=== PATIENT | male | born 1945 | race Caucasian/White ===

== ENCOUNTER 2017-08-07 05:55 | Day surgery (SDC) | payer OTHER ==
[2017-08-03 16:17] VITALS: BMI 23.4
--- NOTE | 2017-08-06 10:18 | HP ---
DATE OF ADMISSION: DATE OF SURGERY: 08/07/2017 REASON FOR ADMISSION: Right inguinal hernia. BRIEF HISTORY: This is a 72-year-old gentleman with a longstanding history of having a known right inguinal hernia. He knows when he tore the area. It was him catching a ball, and the patient was off balance and subsequently felt a ripping sensation. In any event, the patient states he has some discomfort with prolonged standing or mild strenuous activity in the right groin region. He notices a progressive bulge in the right groin. Now he has a large mass in the right groin. He has had no bouts of nausea or vomiting. No change in bowel habits. PAST MEDICAL HISTORY: No coronary artery disease, hypertension, or diabetes. PAST SURGICAL HISTORY: The patient has had left inguinal hernia repair approximately 20 years ago. The patient thinks he had mesh. MEDICATIONS: Aspirin. ALLERGIES: None. SOCIAL HISTORY: The patient is in construction. He does not smoke. He drinks socially. PHYSICAL EXAMINATION: Abdomen: Soft, nontender, nondistended. He is placed through a multitude of Valsalva maneuvers. He has a large right inguinal hernia, which is reducible in the supine position. He has a left inguinal scar. The patient had a left inguinal hernia repair 20 years ago. He has no obvious recurrence, but there is some laxity noted in the left groin, and a small, recurrent hernia cannot be entirely ruled out. Genitourinary: Right scrotum and testicle is within normal limits. Left scrotum and testicle is within normal limits, but the testicle is higher riding. IMPRESSION AND PLAN: Right inguinal hernia. This is a 72-year-old gentleman becoming more symptomatic from an enlarging right inguinal hernia. We have discussed the various types of approaches. The patient will be scheduled for a laparoscopic right inguinal herniorrhaphy. At this time, I do not feel an obvious hernia in the left groin, but we will examine the left side, and if a hernia is noted, it will be repaired. If no hernia is noted on the left groin, a piece of mesh will be left in the direct inguinal space for reinforcement given this repair was over 20-25 years ago. The indications, alternatives, and complications of this procedure discussed at length. We specifically talked about the higher chance of a seroma, which may or may not resolve in this gentleman's case given his large right inguinal hernia with encroachment into the proximal scrotum. Maryuri RIVAS [id number]
[2017-08-07] MEDS ORDERED: DEXAMETHASONE SOD PHOSPHATE/PF 10 MG/ML SDV ONE (07:13)
[2017-08-07] MEDS ORDERED: MIDAZOLAM HCL 2 MG/2 ML SINGLE DOSE VIAL ONE (07:13)
[2017-08-07] MEDS ORDERED: BUPIVACAINE HCL/PF (5 MG/ML) 30 ML VIAL IJ ONE (07:13)
[2017-08-07] MEDS ORDERED: SUCCINYLCHOLINE CHLORIDE 200 MG/10 ML VIAL ONE (07:38)
[2017-08-07] MEDS ORDERED: ROCURONIUM BROMIDE 50 MG/5 ML VIAL ONE ×2 (07:38→08:01)
[2017-08-07] MEDS ORDERED: PROPOFOL 20 ML ONE ×2 (07:38)
[2017-08-07] MEDS ORDERED: ceFAZolin SODIUM 1 GM VIAL ONE (07:54)
[2017-08-07] MEDS ORDERED: DEXAMETHASONE SOD PHOSPHATE 4 MG/1 ML VIAL ONE (07:57)
[2017-08-07] MEDS ORDERED: ONDANSETRON 4 MG/2 ML VIAL ONE (07:57)
[2017-08-07] MEDS ORDERED: NEOSTIGMINE METHYLSULFATE 0.5 MG/ML - 10 ML MDV ONE (08:17)
[2017-08-07] MEDS ORDERED: GLYCOPYRROLATE 0.2 MG/1 ML VIAL ONE (08:18)
--- NOTE | 2017-08-07 09:26 | OP ---
DATE OF OPERATION: 08/07/2017 PREOPERATIVE DIAGNOSIS: Right inguinal hernia. POSTOPERATIVE DIAGNOSIS: Right pantaloon inguinal hernia (incarcerated direct component), recurrent left inguinal hernia. PROCEDURES: Laparoscopic repair of incarcerated right inguinal hernia with mesh, laparoscopic repair of recurrent left inguinal hernia with mesh. SURGEON: Rishabh Stewart MD WATERSHED COORDINATOR: Jamison He MD ANESTHESIA: Oxana Olivares MD (general). ESTIMATED BLOOD LOSS: Minimal. SPECIMEN: None. INDICATIONS/PROCEDURE: This is a 72-year-old gentleman with a longstanding history of having a known right inguinal hernia. The hernia has gotten very large now, and he has discomfort in the area. He also complains of having a mass in his right groin, which is the hernia. He is here for operative repair. Patient was identified and appropriately positioned on the operating room table. After placement of general anesthesia, the abdomen was prepped and draped in the usual sterile fashion with ChloraPrep. An infraumbilical incision was made deep into the subcutaneous tissues. The fascia of the rectus muscle on the right identified, divided sharply, and the muscles split. Under direct vision, a dissector balloon followed by structural balloon placed. Also, under direct vision, a suprapubic 11-mm port placed. The following structures on the right side identified, pubic tubercle, Coopers ligament, and inferior epigastric vessels, spermatic cord, and lateral abdominal wall. During this dissection, the patient has an incarcerated direct inguinal hernia containing fat and a little bit of bladder. This reduced back in the preperitoneal space with blunt dissection. He had a small indirect inguinal hernia sac and a small cord lipoma, but the internal ring was markedly attenuated. Both reduced back in the preperitoneal space. A 4.5 x 6 piece of Versatex mesh was keyhole placed through the suprapubic port site. The mesh was wrapped around the cord structures laterally to reconstruct the internal ring. Laterally, the mesh was anchored to the anterior abdominal wall and lateral abdominal wall. Medially, the mesh anchored to the anterior abdominal wall, pubic tubercle, and Coopers ligament. Upon completion of the right side, similar structures on the left side identified. The left direct space was intact. He had a small recurrent indirect inguinal hernia reduced back into the preperitoneal space with blunt dissection. Another 4.5 x 6 piece of Versatex was keyhole placed through the suprapubic port site. The mesh wrapped around the cord structures laterally to reconstruct the internal ring. Laterally, the mesh anchored to the anterior abdominal wall and lateral abdominal wall. Medially, the mesh well overlapped in the midline, anchored to the anterior abdominal wall, pubic tubercle, and Coopers ligament. The preperitoneal space desufflated under direct vision. The operative field was noted to be hemostatic. Ports were removed. Port sites were hemostatic. The fascia at both port sites were reapproximated with interrupted 0 Vicryl suture. All skin closed with 4-0 subcuticular Biosyn followed by Dermabond. The anchoring system used was the AbsorbaTack. The mesh used was the Versatex 15 x 15 x2. Maryuri RIVAS [id number] cc: Omer Marin MD
[2017-08-07] MEDS ORDERED: oxyCODONE HCL 5 MG TABLET ONE (10:26)
[2017-08-07] MEDS ORDERED: oxyCODONE HCL 5 MG TABLET PO PRN (11:13)
[2017-08-07] MEDS ORDERED: ONDANSETRON 4 MG/2 ML VIAL IVPUSH PRN (11:13)
[2017-08-07] MEDS ORDERED: LACTATED RINGERS SOLUTION 1,000 ML IV SCH (11:15)
[2017-08-07 12:25] VITALS: BP 151/86; PULSE 58; TEMP 97.9
== END 2017-08-07 12:26 | disposition home or self-care (01) ==
LOC: FASU 05:55
PROVIDERS: ATTEND Surgery
PROC: 0YUA4JZ Supplement Bilateral Inguinal Region with Synthetic Substitute, Percutaneous Endoscopic Approach (ICD-10-PCS; principal; 2017-08-07 08:00)
DX: K40.30 Unilateral inguinal hernia, with obstruction, without gangrene, not specified as recurrent (principal); K40.91 Unilateral inguinal hernia, without obstruction or gangrene, recurrent
CPT/HCPCS: 94760